=== PATIENT | male | born 1945 | race Caucasian/White ===

== ENCOUNTER 2021-03-11 16:20 | Inpatient (IN) ==
[2021-03-11] MEDS ORDERED: Naloxone 0.4 MG/ML INJ IVP PRN (19:45)
[2021-03-11 21:02] LABS: Basophils % 0.2 %; Eosinophils % 0.4 %; Hematocrit 26.6 % (37.5-50.1); Hemoglobin 8.4 g/dL (12.9-16.9); Immature Granulocytes % 0.8 % (0-4); Lymphocytes # 0.8 K/mcL (0.6-4.6); Lymphocytes % 8.2 %; Mean Corpuscular HGB Conc 31.6 g/dL (31.6-35.5); Mean Corpuscular Hemoglobin 29.5 pg (28.0-33.3); Mean Corpuscular Volume 93.3 fL (83.0-100.0); Mean Platelet Volume 10.2 fL (9.4-12.4); Monocytes # 0.5 K/mcL (0.0-1.3); Monocytes % 4.9 %; Neutrophils # 8.5 K/mcL (1.6-8.9); Platelet Count 194 K/mcL (140-400); Red Blood Count 2.85 M/mcL (4.19-5.50); Red Cell Distribution Width 17.3 % (11.5-14.5); Segmented Neutrophils % 85.5 %; White Blood Count 9.9 K/mcL (4.3-11.1)
[2021-03-11 21:10] LABS: INR 1.6; Prothrombin Time 17.9 Seconds (9.4-12.1)
[2021-03-11 21:23] LABS: Albumin 3.3 g/dL (3.5-5.7); Albumin/Globulin Ratio 1.1 (1.1-2.2); Bilirubin,Total 0.5 mg/dL (0.3-1.0); Calcium 8.6 mg/dL (8.6-10.3); Globulin 2.9 g/dL (2.4-3.5); Magnesium 1.8 mg/dL (1.6-2.6); Phosphorous 5.8 mg/dL (2.7-4.5); Potassium 5.3 mEq/L (3.5-5.1); Total Protein 6.2 g/dL (6.4-8.9); Troponin I 0.03 ng/mL (< 0.04); Uric Acid 9.5 mg/dL (2.3-7.6)
[2021-03-11 22:20] LABS: Potassium,Urine 15.3 mEq/L
[2021-03-11 22:22] LABS: Bacteria,Urine Few per hpf (None-Few); Bilirubin,Urine Negative (Negative); Blood,Urine Negative (Negative); Clarity,Urine Clear (Clear); Color,Urine Light-Yellow (Yellow); Glucose,Urine (UA) Normal (Normal); Hyaline Casts,Urine Few per lpf (None Seen); Ketones,Urine Negative (Negative); Leukocyte Esterase,Urine Negative (Negative); Mucus,Urine Few per lpf (None-Few); Nitrite,Urine Negative (Negative); Protein,Urine 30 mg/dL (Neg-Trace); RBC,Urine 0-3 per hpf (0-3); Specific Gravity,Urine 1.012 (1.010-1.025); Urobilinogen,Urine Normal (Normal)
[2021-03-12] MEDS: 0.9 % Sodium Chloride 1,000 ML IVC SCH ×2 (02:48→13:21)
[2021-03-12 03:31] LABS: Albumin 3.2 g/dL (3.5-5.7); Calcium 9.1 mg/dL (8.6-10.3); Phosphorous 5.2 mg/dL (2.7-4.5); Potassium 5.4 mEq/L (3.5-5.1)
[2021-03-12 03:33] LABS: Thyroid Stimulating Hormone 3.458 mcIU/mL (0.340-5.600)
[2021-03-12 03:43] LABS: Folate 11.6 ng/mL (3.0-16.0)
[2021-03-12 03:45] LABS: Vitamin B12 > 1500 pg/mL (250-1100)
[2021-03-12] MEDS ORDERED: Calcium Gluconate 1gm/50mL 1 GM/50 ML BAG IVPB ONE (06:47)
[2021-03-12] MEDS ORDERED: 0.9 % Sodium Chloride 500 ML IVC PRN (06:48)
[2021-03-12] MEDS ORDERED: 0.9 % Sodium Chloride 500 ML IVC ONE ×2 (09:35→10:11)
[2021-03-12 10:26] LABS: Hematocrit 27.3 % (37.5-50.1); Hemoglobin 8.2 g/dL (12.9-16.9); Mean Corpuscular Hemoglobin 28.5 pg (28.0-33.3); Mean Corpuscular Volume 94.8 fL (83.0-100.0); Mean Platelet Volume 10.2 fL (9.4-12.4); Platelet Count 176 K/mcL (140-400); Red Blood Count 2.88 M/mcL (4.19-5.50); Red Cell Distribution Width 17.2 % (11.5-14.5); White Blood Count 7.3 K/mcL (4.3-11.1)
[2021-03-12 10:37] LABS: ABG Base Excess -12 mEq/L (-2 to 3); ABG HCO3 12 mEq/L (21-27); ABG Oxygen Saturation 95 % (95-98); ABG PCO2 23 mmHg (35-45); ABG PH 7.34 pH Units (7.32-7.45); ABG PO2 80 mmHg (85-104); ABG TCO2 13 mEq/L (20-26)
[2021-03-12 10:41] LABS: Albumin/Globulin Ratio 1.1 (1.1-2.2); Bilirubin,Total 0.5 mg/dL (0.3-1.0); Calcium 8.8 mg/dL (8.6-10.3); Globulin 2.8 g/dL (2.4-3.5); Potassium 5.1 mEq/L (3.5-5.1); Total Protein 5.8 g/dL (6.4-8.9)
[2021-03-12 11:01] LABS: Hepatitis B Surface Antigen Nonreactive (Nonreactive)
[2021-03-12 11:30] LABS: Hepatitis B Core IgM Nonreactive (Nonreactive); Hepatitis C Virus Antibody Nonreactive (Nonreactive)
[2021-03-12 11:32] LABS: Hepatitis A Antibody IgM Nonreactive (Nonreactive)
[2021-03-12] MEDS: cefTRIAXone 1,000 MG in Water for inj. (sterile) 10 ML IVP SCH (11:45)
[2021-03-12] MEDS ORDERED: Dextrose Gel 15 GM/37.5 ML TUBE PO PRN ×2 (11:55)
[2021-03-12] MEDS ORDERED: D5% in Water 1,000 ML IVC PRN (11:55)
[2021-03-12] MEDS: Insulin LISPRO 300 UNITS/3 ML VIAL SUBQ SCH ×2 (12:23→17:46)
[2021-03-12 12:48] LABS: Estimated Average Glucose 126 mg/dl
[2021-03-12] MEDS: Acetaminophen 325 MG TABLET PO PRN (13:20)
[2021-03-12 14:32] LABS: Creatinine,Urine 61 mg/dL
[2021-03-12] MEDS: Apixaban 5 MG TABLET PO SCH (20:05)
[2021-03-12] MEDS: sulfaSALAzine 500 MG TABLET PO SCH (20:05)
[2021-03-12] MEDS: *HR* Amiodarone 200 MG TABLET PO SCH (20:05)
[2021-03-13] MEDS: Insulin LISPRO 300 UNITS/3 ML VIAL SUBQ SCH ×5 (02:48→20:03)
[2021-03-13 04:52] LABS: Basophils % 0.5 %; Eosinophils # 0.1 K/mcL (0.0-0.6); Eosinophils % 1.6 %; Immature Granulocytes % 1.5 % (0-4); Lymphocytes # 0.9 K/mcL (0.6-4.6); Lymphocytes % 15.1 %; Mean Corpuscular HGB Conc 30.4 g/dL (31.6-35.5); Mean Corpuscular Hemoglobin 28.7 pg (28.0-33.3); Mean Corpuscular Volume 94.3 fL (83.0-100.0); Mean Platelet Volume 10.8 fL (9.4-12.4); Monocytes # 0.4 K/mcL (0.0-1.3); Neutrophils # 4.6 K/mcL (1.6-8.9); Platelet Count 191 K/mcL (140-400); Red Blood Count 2.44 M/mcL (4.19-5.50); Red Cell Distribution Width 17.3 % (11.5-14.5); Segmented Neutrophils % 74.3 %; White Blood Count 6.2 K/mcL (4.3-11.1)
[2021-03-13 05:14] LABS: Calcium 8.3 mg/dL (8.6-10.3)
[2021-03-13] MEDS ORDERED: 0.9 % Sodium Chloride 250 ML IVC SCH (07:15)
[2021-03-13] MEDS: Apixaban 5 MG TABLET PO SCH ×2 (09:56→20:02)
[2021-03-13] MEDS: predniSONE 5 MG TABLET PO SCH (09:57)
[2021-03-13] MEDS: sulfaSALAzine 500 MG TABLET PO SCH ×2 (09:57→20:01)
[2021-03-13] MEDS: *HR* Amiodarone 200 MG TABLET PO SCH ×2 (09:57→20:02)
[2021-03-13] MEDS: cefTRIAXone 1,000 MG in Water for inj. (sterile) 10 ML IVP SCH (10:04)
[2021-03-13] MEDS ORDERED: Sodium Bicarbonate 75 MEQ in 0.45 % Sodium Chloride 1,000 ML IVC SCH (11:15)
[2021-03-13] MEDS ORDERED: Sodium Bicarbonate 50 MEQ/50 ML VIAL IVP ONE (11:30)
[2021-03-13] MEDS: Sodium Bicarbonate 75 MEQ in 0.45 % Sodium Chloride 1,000 ML IVC SCH ×2 (12:47→22:53)
[2021-03-13 18:17] LABS: Hematocrit 25.2 % (37.5-50.1); Hemoglobin 7.9 g/dL (12.9-16.9)
[2021-03-14 02:59] LABS: Basophils % 0.5 %; Eosinophils # 0.1 K/mcL (0.0-0.6); Eosinophils % 2.4 %; Hemoglobin 7.7 g/dL (12.9-16.9); Immature Granulocytes % 1.7 % (0-4); Lymphocytes # 0.8 K/mcL (0.6-4.6); Lymphocytes % 18.2 %; Mean Corpuscular HGB Conc 33.5 g/dL (31.6-35.5); Mean Corpuscular Hemoglobin 29.8 pg (28.0-33.3); Mean Corpuscular Volume 89.1 fL (83.0-100.0); Mean Platelet Volume 10.1 fL (9.4-12.4); Monocytes # 0.3 K/mcL (0.0-1.3); Monocytes % 7.3 %; Platelet Count 175 K/mcL (140-400); Red Blood Count 2.58 M/mcL (4.19-5.50); Segmented Neutrophils % 69.9 %; White Blood Count 4.2 K/mcL (4.3-11.1)
[2021-03-14 03:18] LABS: Calcium 7.9 mg/dL (8.6-10.3); Potassium 4.7 mEq/L (3.5-5.1)
[2021-03-14] MEDS: Insulin LISPRO 300 UNITS/3 ML VIAL SUBQ SCH ×4 (07:27→21:08)
[2021-03-14] MEDS: *HR* Amiodarone 200 MG TABLET PO SCH ×2 (08:37→21:08)
[2021-03-14] MEDS: predniSONE 5 MG TABLET PO SCH (08:37)
[2021-03-14] MEDS: Apixaban 5 MG TABLET PO SCH ×2 (08:37→21:08)
[2021-03-14] MEDS: sulfaSALAzine 500 MG TABLET PO SCH ×2 (08:41→21:08)
[2021-03-14] MEDS: Sodium Bicarbonate 75 MEQ in 0.45 % Sodium Chloride 1,000 ML IVC SCH ×2 (11:38→12:44)
[2021-03-15] MEDS: Acetaminophen 325 MG TABLET PO PRN ×2 (04:18→10:53)
[2021-03-15 05:48] LABS: Basophils % 0.7 %; Eosinophils # 0.1 K/mcL (0.0-0.6); Eosinophils % 1.2 %; Immature Granulocytes % 1.2 % (0-4); Lymphocytes # 0.8 K/mcL (0.6-4.6); Lymphocytes % 19.8 %; Mean Corpuscular Volume 90.6 fL (83.0-100.0); Mean Platelet Volume 10.2 fL (9.4-12.4); Monocytes # 0.3 K/mcL (0.0-1.3); Monocytes % 7.3 %; Neutrophils # 2.9 K/mcL (1.6-8.9); Platelet Count 164 K/mcL (140-400); Red Blood Count 2.76 M/mcL (4.19-5.50); Red Cell Distribution Width 16.9 % (11.5-14.5); Segmented Neutrophils % 69.8 %; White Blood Count 4.1 K/mcL (4.3-11.1)
[2021-03-15 06:12] LABS: BUN/Creatinine Ratio 15 (6-26); Blood Urea Nitrogen 20 mg/dL (8-23); Calcium 7.7 mg/dL (8.6-10.3); Carbon Dioxide 20 mEq/L (23-29); Chloride 109 mEq/L (98-107); Glucose 78 mg/dL (70-105); Osmolality,Calculated 285 (280-300); Potassium 3.6 mEq/L (3.5-5.1); Sodium 137 mEq/L (136-145); eGFR For African Americans > 60 (> 60); eGFR For Non-African Americans 52 (> 60)
[2021-03-15] MEDS: Insulin LISPRO 300 UNITS/3 ML VIAL SUBQ SCH ×4 (08:14→20:30)
[2021-03-15] MEDS: Sodium Bicarbonate 75 MEQ in 0.45 % Sodium Chloride 1,000 ML IVC SCH (08:21)
[2021-03-15] MEDS: Apixaban 5 MG TABLET PO SCH ×2 (08:22→20:29)
[2021-03-15] MEDS: *HR* Amiodarone 200 MG TABLET PO SCH ×2 (08:22→20:29)
[2021-03-15] MEDS: predniSONE 5 MG TABLET PO SCH (08:22)
[2021-03-15] MEDS: Ondansetron ODT 4 MG TAB.RAPDIS SL PRN ×2 (08:22→17:06)
[2021-03-15] MEDS: sulfaSALAzine 500 MG TABLET PO SCH ×2 (08:22→20:30)
[2021-03-15] MEDS: *HR* Methotrexate 2.5 MG TABLET PO SCH (10:51)
[2021-03-15] MEDS: Gabapentin 300 MG CAPSULE PO SCH (17:06)
[2021-03-16] MEDS: Sodium Bicarbonate 75 MEQ in 0.45 % Sodium Chloride 1,000 ML IVC SCH (05:14)
[2021-03-16 05:53] LABS: Hematocrit 25.3 % (37.5-50.1); Hemoglobin 7.9 g/dL (12.9-16.9); Mean Corpuscular HGB Conc 31.2 g/dL (31.6-35.5); Mean Corpuscular Hemoglobin 28.8 pg (28.0-33.3); Mean Corpuscular Volume 92.3 fL (83.0-100.0); Platelet Count 151 K/mcL (140-400); Red Blood Count 2.74 M/mcL (4.19-5.50); Red Cell Distribution Width 16.9 % (11.5-14.5); White Blood Count 3.2 K/mcL (4.3-11.1)
[2021-03-16 06:11] LABS: Calcium 7.7 mg/dL (8.6-10.3); Potassium 3.6 mEq/L (3.5-5.1)
[2021-03-16] MEDS: Insulin LISPRO 300 UNITS/3 ML VIAL SUBQ SCH ×4 (07:03→21:16)
[2021-03-16] MEDS: *HR* Dextrose 50 % in Water (Vial) 50 ML VIAL IVP PRN (07:26)
[2021-03-16] MEDS: sulfaSALAzine 500 MG TABLET PO SCH ×2 (07:34→21:08)
[2021-03-16] MEDS: predniSONE 5 MG TABLET PO SCH (07:35)
[2021-03-16] MEDS: Gabapentin 300 MG CAPSULE PO SCH ×2 (07:35→21:08)
[2021-03-16] MEDS: *HR* Amiodarone 200 MG TABLET PO SCH ×2 (07:35→21:08)
[2021-03-16] MEDS ORDERED: 0.9 % Sodium Chloride 250 ML IVC SCH (10:00)
[2021-03-16] MEDS ORDERED: *HR* Propofol 200 MG/20 ML VIAL IVP ONE (16:19)
[2021-03-16] MEDS ORDERED: *HR* FentaNYL (PF) 100 MCG/2 ML VIAL ONE (16:20)
[2021-03-16] MEDS ORDERED: *HR* Rocuronium Bromide 50 MG/5 ML VIAL ONE (16:23)
[2021-03-16] MEDS ORDERED: Ondansetron 4 MG/2 ML VIAL ONE (16:24)
[2021-03-16] MEDS ORDERED: Lidocaine HCL 4 ML Topical Solution (Laryng-O-Jet Kit Sterile Pak) TP ONE (16:25)
[2021-03-16] MEDS ORDERED: Isovue-300 50ML VIAL ONE (16:59)
[2021-03-16] MEDS ORDERED: Heparin 1,000 UNITS/500 mL 500 ML ONE (17:03)
[2021-03-16] MEDS ORDERED: Lidocaine -MPF 2% 2 ML VIAL ONE (17:07)
[2021-03-16] MEDS: Apixaban 5 MG TABLET PO SCH (21:08)
[2021-03-17 03:49] LABS: Hematocrit 28.1 % (37.5-50.1); Hemoglobin 9.1 g/dL (12.9-16.9); Mean Corpuscular HGB Conc 32.4 g/dL (31.6-35.5); Mean Corpuscular Hemoglobin 29.5 pg (28.0-33.3); Mean Corpuscular Volume 91.2 fL (83.0-100.0); Mean Platelet Volume 10.1 fL (9.4-12.4); Platelet Count 161 K/mcL (140-400); Red Blood Count 3.08 M/mcL (4.19-5.50); Red Cell Distribution Width 16.7 % (11.5-14.5); White Blood Count 3.6 K/mcL (4.3-11.1)
[2021-03-17 04:06] LABS: BUN/Creatinine Ratio 12 (6-26); Blood Urea Nitrogen 15 mg/dL (8-23); Calcium 7.8 mg/dL (8.6-10.3); Carbon Dioxide 21 mEq/L (23-29); Chloride 110 mEq/L (98-107); Glucose 62 mg/dL (70-105); Magnesium 1.5 mg/dL (1.6-2.6); Osmolality,Calculated 287 (280-300); Potassium 3.8 mEq/L (3.5-5.1); Sodium 139 mEq/L (136-145); eGFR For African Americans > 60 (> 60); eGFR For Non-African Americans 56 (> 60)
[2021-03-17] MEDS: Insulin LISPRO 300 UNITS/3 ML VIAL SUBQ SCH ×4 (07:35→19:53)
[2021-03-17] MEDS: Apixaban 5 MG TABLET PO SCH (08:26)
[2021-03-17] MEDS: Gabapentin 300 MG CAPSULE PO SCH ×3 (08:26→19:54)
[2021-03-17] MEDS: *HR* Amiodarone 200 MG TABLET PO SCH ×2 (08:26→19:54)
[2021-03-17] MEDS: predniSONE 5 MG TABLET PO SCH (08:27)
[2021-03-17] MEDS: sulfaSALAzine 500 MG TABLET PO SCH ×2 (08:27→19:54)
[2021-03-17] MEDS: *HR* Dextrose 50 % in Water (Vial) 50 ML VIAL IVP PRN (08:29)
[2021-03-17] MEDS ORDERED: Perflutren Lipid Microsphere 1.3 ML in 0.9 % Sodium Chloride 8.7 ML IVP PRN (10:15)
[2021-03-17] MEDS: Acetaminophen 325 MG TABLET PO PRN (19:07)
[2021-03-18 02:00] LABS: Basophils % 0.9 %; Eosinophils % 0.7 %; Hematocrit 28.9 % (37.5-50.1); Hemoglobin 9.3 g/dL (12.9-16.9); Immature Granulocytes % 0.7 % (0-4); Lymphocytes # 0.7 K/mcL (0.6-4.6); Lymphocytes % 16.2 %; Mean Corpuscular HGB Conc 32.2 g/dL (31.6-35.5); Mean Corpuscular Hemoglobin 29.4 pg (28.0-33.3); Mean Corpuscular Volume 91.5 fL (83.0-100.0); Monocytes # 0.4 K/mcL (0.0-1.3); Monocytes % 9.6 %; Neutrophils # 3.2 K/mcL (1.6-8.9); Platelet Count 189 K/mcL (140-400); Red Blood Count 3.16 M/mcL (4.19-5.50); Red Cell Distribution Width 16.6 % (11.5-14.5); Segmented Neutrophils % 71.9 %; White Blood Count 4.4 K/mcL (4.3-11.1)
[2021-03-18 02:19] LABS: Magnesium 1.9 mg/dL (1.6-2.6); Potassium 3.8 mEq/L (3.5-5.1)
[2021-03-18] MEDS: Insulin LISPRO 300 UNITS/3 ML VIAL SUBQ SCH ×4 (08:57→22:12)
[2021-03-18] MEDS: Gabapentin 300 MG CAPSULE PO SCH ×2 (09:05→22:09)
[2021-03-18] MEDS: sulfaSALAzine 500 MG TABLET PO SCH ×2 (09:05→22:09)
[2021-03-18] MEDS: *HR* Amiodarone 200 MG TABLET PO SCH ×2 (09:05→22:09)
[2021-03-18] MEDS: predniSONE 5 MG TABLET PO SCH (09:05)
[2021-03-18] MEDS: Acetaminophen 325 MG TABLET PO PRN (09:10)
[2021-03-19 06:49] LABS: INR 1.2; Prothrombin Time 13.8 Seconds (9.4-12.1)
[2021-03-19 07:09] LABS: BUN/Creatinine Ratio 14 (6-26); Blood Urea Nitrogen 18 mg/dL (8-23); Calcium 8.1 mg/dL (8.6-10.3); Carbon Dioxide 23 mEq/L (23-29); Chloride 106 mEq/L (98-107); Glucose 80 mg/dL (70-105); Magnesium 1.8 mg/dL (1.6-2.6); Osmolality,Calculated 285 (280-300); Potassium 3.7 mEq/L (3.5-5.1); Sodium 137 mEq/L (136-145); eGFR For African Americans > 60 (> 60); eGFR For Non-African Americans 54 (> 60)
[2021-03-19] MEDS: Insulin LISPRO 300 UNITS/3 ML VIAL SUBQ SCH ×4 (07:39→21:23)
[2021-03-19 07:49] LABS: Basophils % 0.7 %; Eosinophils # 0.1 K/mcL (0.0-0.6); Eosinophils % 1.1 %; Hematocrit 32.2 % (37.5-50.1); Hemoglobin 10.2 g/dL (12.9-16.9); Immature Granulocytes % 0.9 % (0-4); Lymphocytes % 22.6 %; Mean Corpuscular HGB Conc 31.7 g/dL (31.6-35.5); Mean Corpuscular Hemoglobin 29.7 pg (28.0-33.3); Mean Corpuscular Volume 93.9 fL (83.0-100.0); Mean Platelet Volume 10.3 fL (9.4-12.4); Monocytes # 0.3 K/mcL (0.0-1.3); Monocytes % 7.6 %; Platelet Count 174 K/mcL (140-400); Red Blood Count 3.43 M/mcL (4.19-5.50); Red Cell Distribution Width 16.8 % (11.5-14.5); Segmented Neutrophils % 67.1 %; White Blood Count 4.5 K/mcL (4.3-11.1)
[2021-03-19 07:59] LABS: Adenovirus Not Detected (Not Detect); Bordetella Pertussis Not Detected (Not Detect); Chlamydophila pneumoniae Not Detected (Not Detect); Coronavirus 229E Not Detected (Not Detect); Coronavirus HKU1 Not Detected (Not Detect); Coronavirus NL63 Not Detected (Not Detect); Coronavirus OC43 Not Detected (Not Detect); Human Metapneumovirus Not Detected (Not Detect); Human Rhinovirus/Enterovirus Not Detected (Not Detect); Influenza A Subtype 2009 H1 Not Detected (Not Detect); Influenza B Not Detected (Not Detect); Mycoplasma pneumoniae Not Detected (Not Detect); Parainfluenza Virus 1 Not Detected (Not Detect); Parainfluenza Virus 2 Not Detected (Not Detect); Parainfluenza Virus 3 Not Detected (Not Detect); Parainfluenza Virus 4 Not Detected (Not Detect); Respiratory Syncytial Virus Not Detected (Not Detect); SARS-CoV-2 Not Detected (Not Detect)
[2021-03-19] MEDS: predniSONE 5 MG TABLET PO SCH (09:49)
[2021-03-19] MEDS: Gabapentin 300 MG CAPSULE PO SCH ×2 (09:49→21:19)
[2021-03-19] MEDS: *HR* Amiodarone 200 MG TABLET PO SCH ×2 (09:49→21:19)
[2021-03-19] MEDS: sulfaSALAzine 500 MG TABLET PO SCH ×2 (09:51→21:19)
[2021-03-19] MEDS ORDERED: *HR* FentaNYL (PF) 100 MCG/2 ML VIAL ONE (17:10)
[2021-03-19] MEDS ORDERED: 0.9 % Sodium Chloride 250 ML ONE (17:10)
[2021-03-19] MEDS ORDERED: *HR* Midazolam HCl 2 MG/2 ML VIAL ONE (17:11)
[2021-03-19] MEDS ORDERED: 0.9 % Sodium Chloride 1,000 ML ONE (17:24)
[2021-03-19] MEDS: Acetaminophen 325 MG TABLET PO PRN (21:27)
[2021-03-20 07:45] LABS: Basophils % 0.5 %; Eosinophils # 0.1 K/mcL (0.0-0.6); Eosinophils % 0.9 %; Hematocrit 29.7 % (37.5-50.1); Hemoglobin 9.8 g/dL (12.9-16.9); Immature Granulocytes % 0.7 % (0-4); Mean Corpuscular Hemoglobin 30.3 pg (28.0-33.3); Mean Platelet Volume 10.5 fL (9.4-12.4); Monocytes # 0.4 K/mcL (0.0-1.3); Monocytes % 6.8 %; Neutrophils # 4.1 K/mcL (1.6-8.9); Platelet Count 171 K/mcL (140-400); Red Blood Count 3.23 M/mcL (4.19-5.50); Red Cell Distribution Width 16.8 % (11.5-14.5); Segmented Neutrophils % 74.1 %; White Blood Count 5.6 K/mcL (4.3-11.1)
[2021-03-20 08:13] LABS: BUN/Creatinine Ratio 14 (6-26); Blood Urea Nitrogen 18 mg/dL (8-23); Calcium 8.1 mg/dL (8.6-10.3); Carbon Dioxide 24 mEq/L (23-29); Chloride 108 mEq/L (98-107); Glucose 71 mg/dL (70-105); Magnesium 1.7 mg/dL (1.6-2.6); Osmolality,Calculated 286 (280-300); Potassium 3.8 mEq/L (3.5-5.1); Sodium 138 mEq/L (136-145); eGFR For African Americans > 60 (> 60); eGFR For Non-African Americans 56 (> 60)
[2021-03-20] MEDS: sulfaSALAzine 500 MG TABLET PO SCH ×2 (08:25→21:26)
[2021-03-20] MEDS: predniSONE 5 MG TABLET PO SCH (08:25)
[2021-03-20] MEDS: *HR* Amiodarone 200 MG TABLET PO SCH ×2 (08:25→21:26)
[2021-03-20] MEDS: Gabapentin 300 MG CAPSULE PO SCH ×2 (08:25→21:26)
[2021-03-20] MEDS: Acetaminophen 325 MG TABLET PO PRN ×2 (08:30→15:31)
[2021-03-20] MEDS: Insulin LISPRO 300 UNITS/3 ML VIAL SUBQ SCH ×4 (08:34→21:17)
[2021-03-21 02:05] LABS: Basophils % 0.2 %; Eosinophils % 0.7 %; Hematocrit 29.6 % (37.5-50.1); Hemoglobin 9.5 g/dL (12.9-16.9); Immature Granulocytes % 0.7 % (0-4); Lymphocytes # 0.7 K/mcL (0.6-4.6); Lymphocytes % 15.7 %; Mean Corpuscular HGB Conc 32.1 g/dL (31.6-35.5); Mean Corpuscular Hemoglobin 29.8 pg (28.0-33.3); Mean Corpuscular Volume 92.8 fL (83.0-100.0); Mean Platelet Volume 10.5 fL (9.4-12.4); Monocytes # 0.4 K/mcL (0.0-1.3); Monocytes % 8.2 %; Neutrophils # 3.2 K/mcL (1.6-8.9); Platelet Count 148 K/mcL (140-400); Red Blood Count 3.19 M/mcL (4.19-5.50); Segmented Neutrophils % 74.5 %; White Blood Count 4.3 K/mcL (4.3-11.1)
[2021-03-21 02:21] LABS: BUN/Creatinine Ratio 22 (6-26); Blood Urea Nitrogen 28 mg/dL (8-23); Calcium 7.9 mg/dL (8.6-10.3); Carbon Dioxide 22 mEq/L (23-29); Chloride 109 mEq/L (98-107); Glucose 87 mg/dL (70-105); Osmolality,Calculated 291 (280-300); Potassium 4.3 mEq/L (3.5-5.1); Sodium 138 mEq/L (136-145); eGFR For African Americans > 60 (> 60); eGFR For Non-African Americans 54 (> 60)
[2021-03-21] MEDS: Insulin LISPRO 300 UNITS/3 ML VIAL SUBQ SCH ×4 (08:16→20:37)
[2021-03-21] MEDS ORDERED: lisinopriL 5 MG TABLET PO SCH (09:00)
[2021-03-21] MEDS: sulfaSALAzine 500 MG TABLET PO SCH ×2 (09:24→20:35)
[2021-03-21] MEDS: *HR* Amiodarone 200 MG TABLET PO SCH ×2 (09:24→20:35)
[2021-03-21] MEDS: Gabapentin 300 MG CAPSULE PO SCH ×2 (09:24→20:35)
[2021-03-21] MEDS: lisinopriL 5 MG TABLET PO SCH (09:25)
[2021-03-21] MEDS: predniSONE 5 MG TABLET PO SCH (09:25)
[2021-03-21] MEDS: Acetaminophen 325 MG TABLET PO PRN ×2 (09:38→16:42)
[2021-03-22] MEDS: Melatonin 3 MG TABLET PO PRN ×2 (00:55→21:14)
[2021-03-22] MEDS: Insulin LISPRO 300 UNITS/3 ML VIAL SUBQ SCH ×4 (07:49→21:14)
[2021-03-22] MEDS: Gabapentin 300 MG CAPSULE PO SCH ×2 (08:19→21:14)
[2021-03-22] MEDS: Acetaminophen 325 MG TABLET PO PRN (08:19)
[2021-03-22] MEDS: sulfaSALAzine 500 MG TABLET PO SCH ×2 (08:19→21:14)
[2021-03-22] MEDS: lisinopriL 5 MG TABLET PO SCH (08:20)
[2021-03-22] MEDS: *HR* Amiodarone 200 MG TABLET PO SCH ×2 (08:20→21:14)
[2021-03-22] MEDS: predniSONE 5 MG TABLET PO SCH (08:20)
[2021-03-22] MEDS: *HR* Methotrexate 2.5 MG TABLET PO SCH (08:51)
[2021-03-23] MEDS: Insulin LISPRO 300 UNITS/3 ML VIAL SUBQ SCH ×2 (10:20→12:45)
[2021-03-23] MEDS: *HR* Amiodarone 200 MG TABLET PO SCH (10:34)
[2021-03-23] MEDS: lisinopriL 5 MG TABLET PO SCH (10:36)
[2021-03-23] MEDS: Gabapentin 300 MG CAPSULE PO SCH (10:38)
[2021-03-23] MEDS: predniSONE 5 MG TABLET PO SCH (10:38)
[2021-03-23] MEDS: sulfaSALAzine 500 MG TABLET PO SCH (10:48)
[2021-03-23 11:24] VITALS: BP 122/66; PULSE 87; TEMP 97.8; O2SAT 96
== END 2021-03-23 13:50 | disposition home health service (06) | DRG 982 ==
LOC: 2ANU → SUATTDRO 18:58
PROVIDERS: ADMIT Student in an Organized Health Care Education/Training Program; ATTEND Internal Medicine